=== PATIENT | male | born 1975 ===

== ENCOUNTER 2017-01-28 09:29 | Day surgery (SDC) | payer OTHER ==
[2017-01-28 09:50] VITALS: BMI 29.5
[2017-01-28] MEDS ORDERED: Midazolam 2 MG/2 ML VIAL ONE (10:50)
[2017-01-28] MEDS ORDERED: Propofol 10 mg/ml Inj (20 ML) ONE ×3 (10:50→11:14)
[2017-01-28 12:16] VITALS: RESP 18; O2SAT 98
[2017-01-28 12:29] VITALS: BP 117/74; PULSE 69; TEMP 98
== END 2017-01-28 12:45 | disposition home or self-care (01) ==
LOC: C.ENDO 09:29
PROVIDERS: ATTEND Internal Medicine Gastroenterology
DX: D12.3 Benign neoplasm of transverse colon (principal); K59.00 Constipation, unspecified; K21.9 Gastro-esophageal reflux disease without esophagitis; K62.5 Hemorrhage of anus and rectum; D72.820 Lymphocytosis (symptomatic); K29.70 Gastritis, unspecified, without bleeding
CPT/HCPCS: 43235; 45388; 88104; 88305; 88313; 88342; J2250; J2704